=== PATIENT | male | born 1965 | race Caucasian/White ===

== ENCOUNTER 2021-07-09 16:58 | Inpatient (IN) ==
[2021-07-09 18:11] LABS: ABS Basophils 0.1 10^3/ul (0-0.2); ABS Monocytes 1.5 10^3/ul (0-0.8); ABS Neutrophils 19.5 10^3/ul (1.5-7.7); Eosinophil % 0.1 %; Hematocrit 37 % (42-52); Hemoglobin 12.4 g/dL (14.0-18.0); Lymphocyte % 4.3 %; Mean Corpuscular HGB Conc 34 g/dL (31-36); Mean Corpuscular Hemoglobin 27 pg (27-31); Mean Corpuscular Volume 81 fL (80-94); Mean Platelet Volume 8.6 fL (7.4-10.4); Platelet Count 264 10^3/uL (150-450); Red Blood Count 4.56 10^6 /uL (4.18-5.48); Red Cell Distribution Width 14 % (10-15); White Blood Count 22.1 10^3/uL (3.5-10.8)
[2021-07-09 18:29] LABS: ALT 42 U/L (7-52); AST 31 U/L (13-39); Albumin 3.7 g/dL (3.2-5.2); Alkaline Phosphatase 89 U/L (35-149); Anion Gap 8 mmol/L (2-11); Blood Urea Nitrogen 10 mg/dL (6-24); CO2 Carbon Dioxide 23 mmol/L (22-32); Chloride 101 mmol/L (101-111); Globulin 3.6 g/dL (2-4); Glucose 127 mg/dL (70-100); Potassium 3.5 mmol/L (3.5-5.0); Sodium 132 mmol/L (135-145); Total Protein 7.3 g/dL (6.4-8.9)
[2021-07-09 18:41] LABS: Urine Benzodiazepine Screen None Detected (None Detect); Urine Cannabinoids Screen None Detected (None Detect); Urine Opiates Screen None Detected (None Detect)
[2021-07-09] MEDS ORDERED: Vancomycin 1,500 MG in NS 0.9% 250 ml 250 ML IVPB ONE (18:45)
[2021-07-09 18:53] LABS: Alcohol, S < 13 mg/dL (<13)
[2021-07-09 19:46] LABS: C Reactive Protein 225.66 mg/L (<8.01)
[2021-07-09] MEDS ORDERED: Enoxaparin 40 MG/0.4 ML SYR SUBCUT SCH (20:00)
[2021-07-09] MEDS ORDERED: NS 0.9% 250 ml 0 ML ONE (20:04)
[2021-07-09] MEDS ORDERED: NS 0.9% 1000 ml BAG 1,000 ML IV SCH ×2 (20:15→20:33)
[2021-07-09] MEDS ORDERED: Lorazepam PYXIS KEY PRN (20:31)
[2021-07-09 20:42] LABS: Erythrocyte Sed Rate 50 mm/Hr (0-19)
[2021-07-09] MEDS: LORazepam 2 mg VIAL 1 ml IV PUSH ONE ×2 (20:43→22:49)
[2021-07-09 20:57] LABS: Creatine Kinase 116 U/L (10-223)
[2021-07-09] MEDS ORDERED: Vancomycin per Pharmacy 1 EA NOTE FOLLOW UP SCH (22:00)
[2021-07-09 23:07] LABS: Rapid COVID-19 Molecular Undetected (Undetected)
[2021-07-10 00:24] LABS: INR 1.2 (0.86-1.15)
[2021-07-10 00:51] LABS: Urine Appearance Clear; Urine Bilirubin Negative (Negative); Urine Blood Negative (Negative); Urine Color Amber; Urine Glucose Negative (Negative); Urine Ketones Negative (Negative); Urine Nitrite Negative (Negative); Urine Protein 2+(100 mg/dL) (Negative); Urine Specific Gravity 1.029 (1.002-1.030); Urine Urobilinogen Positive (Negative)
[2021-07-10 00:52] LABS: Urine Bacteria 1+ (Absent); Urine Red Blood Cell 1+(3-5/hpf) (Absent); Urine Squamous Epithelial Cell Present (Absent); Urine White Blood Cell Trace(0-5/hpf) (Absent)
[2021-07-10] MEDS ORDERED: NS 0.9% 500 ml BAG 500 ML IV ONE ×2 (03:46→04:22)
[2021-07-10] MEDS ORDERED: Lorazepam PYXIS KEY PRN (03:51)
[2021-07-10 04:11] LABS: Hematocrit 36 % (42-52); Hemoglobin 11.7 g/dL (14.0-18.0); Mean Corpuscular HGB Conc 33 g/dL (31-36); Mean Corpuscular Hemoglobin 26 pg (27-31); Mean Corpuscular Volume 80 fL (80-94); Mean Platelet Volume 8.7 fL (7.4-10.4); Platelet Count 263 10^3/uL (150-450); Red Blood Count 4.45 10^6 /uL (4.18-5.48); Red Cell Distribution Width 14 % (10-15); White Blood Count 16.9 10^3/uL (3.5-10.8)
[2021-07-10 04:16] LABS: ABS Basophils 0.1 10^3/ul (0-0.2); ABS Monocytes 1.6 10^3/ul (0-0.8); ABS Neutrophils 14.2 10^3/ul (1.5-7.7); Eosinophil % 0.1 %
[2021-07-10 04:42] LABS: Anion Gap 8 mmol/L (2-11); Blood Urea Nitrogen 11 mg/dL (6-24); CO2 Carbon Dioxide 24 mmol/L (22-32); Calcium 8.4 mg/dL (8.6-10.3); Chloride 99 mmol/L (101-111); Glucose 110 mg/dL (70-100); Potassium 3.3 mmol/L (3.5-5.0); Sodium 131 mmol/L (135-145)
[2021-07-10] MEDS: Vancomycin 1,250 MG in NS 0.9% 250 ml 250 ML IVPB SCH ×3 (05:11→22:59)
[2021-07-10 05:35] LABS: Troponin I 0.04 ng/mL (<0.03)
[2021-07-10] MEDS ORDERED: KCL 20 MEQ/100 ML IVPREMIX 20 MEQ/100 ML BAG IV ONE (05:59)
[2021-07-10 06:23] LABS: Magnesium 1.6 mg/dL (1.9-2.7)
[2021-07-10 06:34] LABS: Troponin I 0.14 ng/mL (<0.03)
[2021-07-10] MEDS ORDERED: Magnesium Sulfate 2 gm BAG 2 GM/50 ML BAG IVPB ONE (07:14)
[2021-07-10] MEDS: Enoxaparin 40 MG/0.4 ML SYR SUBCUT SCH (08:49)
[2021-07-10 08:59] LABS: Troponin I 0.05 ng/mL (<0.03)
[2021-07-10] MEDS: LORazepam 2 mg VIAL 1 ml IV PUSH PRN ×2 (11:55→20:59)
[2021-07-11] MEDS: LORazepam 2 mg VIAL 1 ml IV PUSH PRN ×3 (04:23→20:42)
[2021-07-11 05:28] LABS: ABS Basophils 0.1 10^3/ul (0-0.2); ABS Eosinophils 0.1 10^3/ul (0-0.6); ABS Lymphocytes 1.4 10^3/ul (1.0-4.8); ABS Monocytes 1.2 10^3/ul (0-0.8); ABS Neutrophils 11.5 10^3/ul (1.5-7.7); Eosinophil % 0.7 %; Hematocrit 40 % (42-52); Hemoglobin 13.2 g/dL (14.0-18.0); Lymphocyte % 9.7 %; Mean Corpuscular HGB Conc 33 g/dL (31-36); Mean Corpuscular Hemoglobin 27 pg (27-31); Mean Corpuscular Volume 81 fL (80-94); Mean Platelet Volume 8.6 fL (7.4-10.4); Platelet Count 316 10^3/uL (150-450); Red Blood Count 4.97 10^6 /uL (4.18-5.48); Red Cell Distribution Width 14 % (10-15); White Blood Count 14.1 10^3/uL (3.5-10.8)
[2021-07-11 05:52] LABS: Calcium 8.7 mg/dL (8.6-10.3); Magnesium 2.1 mg/dL (1.9-2.7); Potassium 3.1 mmol/L (3.5-5.0)
[2021-07-11] MEDS: Vancomycin 1,250 MG in NS 0.9% 250 ml 250 ML IVPB SCH ×2 (05:55→13:30)
[2021-07-11] MEDS ORDERED: HYDROmorphone 1 MG/1 ML SYRINGE IV SLOW PU ONE ×2 (06:07→22:55)
[2021-07-11] MEDS ORDERED: Potassium Chlor 20 meq TAB.ER PO ONE (06:11)
[2021-07-11] MEDS: Enoxaparin 40 MG/0.4 ML SYR SUBCUT SCH (11:03)
[2021-07-11] MEDS ORDERED: Vancomycin Trough Check NOTE FOLLOW UP ONE (12:30)
[2021-07-11 13:05] LABS: Calcium 8.6 mg/dL (8.6-10.3); Potassium 3.6 mmol/L (3.5-5.0)
[2021-07-11 13:20] LABS: Vancomycin Trough 4.1 mcg/mL
[2021-07-11 14:07] LABS: Hepatitis C Antibody Reactive (Negative)
[2021-07-11] MEDS: Vancomycin 1,500 MG in NS 0.9% 250 ml 250 ML IVPB SCH (22:01)
[2021-07-11] MEDS ORDERED: hydrALAZINE 20 mg/ml 1 ML Vial IV IV SLOW PU ONE (22:19)
[2021-07-12] MEDS ORDERED: Lorazepam PYXIS KEY PRN (00:43)
[2021-07-12] MEDS ORDERED: LORazepam 2 mg VIAL 1 ml IV PUSH ONE (00:44)
[2021-07-12 05:06] LABS: Hematocrit 36 % (42-52); Hemoglobin 11.9 g/dL (14.0-18.0); Mean Corpuscular HGB Conc 33 g/dL (31-36); Mean Corpuscular Hemoglobin 27 pg (27-31); Mean Corpuscular Volume 80 fL (80-94); Mean Platelet Volume 8.7 fL (7.4-10.4); Platelet Count 324 10^3/uL (150-450); Red Blood Count 4.47 10^6 /uL (4.18-5.48); Red Cell Distribution Width 14 % (10-15); White Blood Count 17.2 10^3/uL (3.5-10.8)
[2021-07-12 05:15] LABS: INR 1.15 (0.86-1.15)
[2021-07-12 05:26] LABS: Calcium 8.7 mg/dL (8.6-10.3); Potassium 3.5 mmol/L (3.5-5.0)
[2021-07-12] MEDS: LORazepam 2 mg VIAL 1 ml IV PUSH PRN ×3 (05:28→22:51)
[2021-07-12] MEDS: Vancomycin 1,500 MG in NS 0.9% 250 ml 250 ML IVPB SCH ×3 (05:29→23:12)
[2021-07-12 07:54] LABS: ABS Basophils 0.1 10^3/ul (0-0.2); ABS Eosinophils 0.1 10^3/ul (0-0.6); ABS Lymphocytes 1.8 10^3/ul (1.0-4.8); ABS Monocytes 1.6 10^3/ul (0-0.8); ABS Neutrophils 13.6 10^3/ul (1.5-7.7); Eosinophil % 0.6 %; Lymphocyte % 10.6 %
[2021-07-12] MEDS: HYDROmorphone 1 MG/1 ML SYRINGE IV SLOW PU PRN ×2 (09:02→14:37)
[2021-07-12] MEDS ORDERED: Iohexol 300 (CONTRAST) 10 ML SDV IV ONE (09:33)
[2021-07-12 10:33] LABS: HIV 4th Generation Nonreactive (Nonreactive)
[2021-07-12 12:01] LABS: TSH Ultra Thyroid Stim Horm 6.18 mcIU/mL (0.34-5.60)
[2021-07-12] MEDS: Enoxaparin 40 MG/0.4 ML SYR SUBCUT SCH (12:03)
[2021-07-12] MEDS ORDERED: fentaNYL 100 mcg/2 ml 50 MCG/ML VIAL IV SLOW PU ONE ×2 (12:32)
[2021-07-12] MEDS ORDERED: NS 0.9% 1000 ml BAG 1,000 ML IV SCH (12:45)
[2021-07-12 12:58] LABS: Urine Benzodiazepine Screen None Detected (None Detect); Urine Buprenorphine Screen None Detected (None Detect); Urine Cannabinoids Screen None Detected (None Detect); Urine Fentanyl Screen Presumptive Positive (None Detect); Urine Hydrocodone Screen Presumptive Positive (None Detect); Urine Opiates Screen Presumptive Positive (None Detect)
[2021-07-12] MEDS ORDERED: Propofol 10 MG/ML 20 ML BTL ONE (15:53)
[2021-07-12] MEDS ORDERED: EPHEDrine (Pressors) 50 MG/ML VIAL ONE (15:53)
[2021-07-12] MEDS ORDERED: Midazolam 5 mg/5 ml VIAL 1 mg/ml 5 ml VIAL (5 mg) ONE (15:54)
[2021-07-12] MEDS ORDERED: Rocuronium 50 mg VIAL 10 mg/ml 5 ml VIAL (50 mg) ONE ×3 (15:57→18:34)
[2021-07-12] MEDS ORDERED: Morphine ER 15 mg TAB ** extended release PO SCH (16:00)
[2021-07-12] MEDS ORDERED: Acetaminophen IV 1 GM/100ML 100 ML IV ONE (16:26)
[2021-07-12] MEDS ORDERED: HYDROmorphone 1 MG/1 ML SYRINGE IV SLOW PU ONE ×2 (16:30→22:03)
[2021-07-12] MEDS ORDERED: ceFAZolin VIAL VIAL ONE ×2 (16:50→20:24)
[2021-07-12] MEDS ORDERED: ceFAZolin 2 GM in NS PREMIX 2 GM/100 ML BAG IVPB ONE (17:09)
[2021-07-12] MEDS ORDERED: Ondansetron 4 mg VIAL 2 MG/ML 2 ml VIAL IV PRN (20:39)
[2021-07-12] MEDS ORDERED: HYDROmorphone 1 MG/1 ML SYRINGE IV PRN (20:39)
[2021-07-12] MEDS ORDERED: Metoclopramide 5 MG/ML VIAL (10 mg) IV PRN (20:39)
[2021-07-12] MEDS ORDERED: Naloxone 0.4 mg VIAL 0.4 mg/ml 1 ml VIAL IV PRN (20:39)
[2021-07-12] MEDS ORDERED: Sugammadex 500 MG/5 ML 5 ml VIAL IV PUSH ONE (20:45)
[2021-07-12] MEDS ORDERED: fentaNYL 100 mcg/2 ml 50 MCG/ML VIAL ONE (21:54)
[2021-07-12] MEDS ORDERED: HYDROmorphone 1 MG/1 ML SYRINGE ONE (21:54)
[2021-07-12] MEDS: fentaNYL 100 mcg/2 ml 50 MCG/ML VIAL IV PRN ×2 (22:00→22:20)
[2021-07-12] MEDS ORDERED: Dexmedetomidine 1,000 MCG in NS 0.9% 250 ml 240 ML IV SCH (23:45)
[2021-07-12] MEDS: fentaNYL 100 mcg/2 ml 50 MCG/ML VIAL IV SLOW PU PRN (23:49)
[2021-07-13] MEDS: Vancomycin 1,500 MG in NS 0.9% 250 ml 250 ML IVPB SCH (04:42)
[2021-07-13 04:45] LABS: Hematocrit 37 % (42-52); Hemoglobin 12.1 g/dL (14.0-18.0); Mean Corpuscular HGB Conc 33 g/dL (31-36); Mean Corpuscular Hemoglobin 26 pg (27-31); Mean Corpuscular Volume 81 fL (80-94); Mean Platelet Volume 8.6 fL (7.4-10.4); Platelet Count 387 10^3/uL (150-450); Red Blood Count 4.62 10^6 /uL (4.18-5.48); Red Cell Distribution Width 15 % (10-15); White Blood Count 15.6 10^3/uL (3.5-10.8)
[2021-07-13] MEDS: fentaNYL 100 mcg/2 ml 50 MCG/ML VIAL IV SLOW PU PRN ×3 (04:47→20:33)
[2021-07-13 04:53] LABS: ABS Basophils 0.1 10^3/ul (0-0.2); ABS Lymphocytes 2.1 10^3/ul (1.0-4.8); ABS Monocytes 1.8 10^3/ul (0-0.8); ABS Neutrophils 11.5 10^3/ul (1.5-7.7); Eosinophil % 0.1 %; Lymphocyte % 13.4 %
[2021-07-13 04:56] LABS: INR 1.24 (0.86-1.15)
[2021-07-13 05:00] LABS: Calcium 8.7 mg/dL (8.6-10.3)
[2021-07-13] MEDS ORDERED: Vancomycin 1000 MG in NS 0.9% 250 ML IVPB ONE (06:15)
[2021-07-13] MEDS: Cyanocobalamin INJ 1,000 MCG/ML VIAL 1 ML VIAL IM SCH (09:08)
[2021-07-13] MEDS: HYDROmorphone 1 MG/1 ML SYRINGE IV SLOW PU PRN ×6 (10:10→23:59)
[2021-07-13 12:41] LABS: Urine Creatinine Concentration 80.59 mg/dL
[2021-07-13] MEDS ORDERED: Vancomycin Trough Check NOTE FOLLOW UP ONE (13:30)
[2021-07-13] MEDS ORDERED: Vancomycin 1,500 MG in NS 0.9% 250 ml 250 ML IVPB SCH (14:00)
[2021-07-13] MEDS: LORazepam 2 mg VIAL 1 ml IV PUSH PRN (19:55)
[2021-07-13] MEDS ORDERED: Cefepime 1 GM in Dextrose 1 GM/50 ML BAG IV SCH (20:00)
[2021-07-13] MEDS ORDERED: NS 0.9% 1000 ml BAG 1,000 ML IV ONE (21:02)
[2021-07-13 21:14] LABS: Urine Appearance Clear; Urine Bilirubin Negative (Negative); Urine Blood Negative (Negative); Urine Color Yellow; Urine Glucose Negative (Negative); Urine Ketones Negative (Negative); Urine Nitrite Negative (Negative); Urine Protein Negative (Negative); Urine Urobilinogen Positive (Negative)
[2021-07-13] MEDS ORDERED: NS 0.9% 1000 ml BAG 1,000 ML IV SCH (21:15)
[2021-07-13] MEDS: Vancomycin 1000 MG in NS 0.9% 250 ML IVPB SCH (21:45)
[2021-07-13] MEDS: Cefepime 1 GM in Dextrose 1 GM/50 ML BAG IV SCH (23:24)
[2021-07-14] MEDS: LORazepam 2 mg VIAL 1 ml IV PUSH PRN ×3 (02:08→14:36)
[2021-07-14] MEDS: HYDROmorphone 1 MG/1 ML SYRINGE IV SLOW PU PRN ×7 (02:08→22:03)
[2021-07-14] MEDS: Vancomycin 1000 MG in NS 0.9% 250 ML IVPB SCH ×4 (02:52→21:27)
[2021-07-14] MEDS: fentaNYL 100 mcg/2 ml 50 MCG/ML VIAL IV SLOW PU PRN ×2 (06:10→20:09)
[2021-07-14 06:55] LABS: Hematocrit 35 % (42-52); Hemoglobin 11.4 g/dL (14.0-18.0); Mean Corpuscular HGB Conc 33 g/dL (31-36); Mean Corpuscular Hemoglobin 27 pg (27-31); Mean Corpuscular Volume 81 fL (80-94); Mean Platelet Volume 8.4 fL (7.4-10.4); Platelet Count 381 10^3/uL (150-450); Red Blood Count 4.28 10^6 /uL (4.18-5.48); Red Cell Distribution Width 15 % (10-15); White Blood Count 15.5 10^3/uL (3.5-10.8)
[2021-07-14 07:20] LABS: Albumin 3.1 g/dL (3.2-5.2); Albumin/Globulin Ratio 0.9 (1-3); Calcium 8.1 mg/dL (8.6-10.3); Globulin 3.6 g/dL (2-4); Magnesium 1.9 mg/dL (1.9-2.7); Potassium 3.6 mmol/L (3.5-5.0); Total Bilirubin 0.5 mg/dL (0.2-1.0); Total Protein 6.7 g/dL (6.4-8.9)
[2021-07-14] MEDS: Cyanocobalamin INJ 1,000 MCG/ML VIAL 1 ML VIAL IM SCH (07:29)
[2021-07-14] MEDS: Cefepime 1 GM in Dextrose 1 GM/50 ML BAG IV SCH (10:38)
[2021-07-14] MEDS ORDERED: Lactated Ringers 500 ml BAG 500 ML IV ONE (15:26)
[2021-07-14 18:00] LABS: CRP High Sensitivity 134.04 mg/L (<2.00)
[2021-07-14] MEDS ORDERED: Thiamine 100 MG/ML 2 ml VIAL (200 mg) IM ONE (18:48)
[2021-07-14] MEDS: LORazepam 2 mg VIAL 1 ml IV PUSH SCH (22:02)
[2021-07-15] MEDS: HYDROmorphone 1 MG/1 ML SYRINGE IV SLOW PU PRN ×2 (01:10→08:57)
[2021-07-15] MEDS: Vancomycin 1000 MG in NS 0.9% 250 ML IVPB SCH ×4 (03:49→20:33)
[2021-07-15] MEDS: fentaNYL 100 mcg/2 ml 50 MCG/ML VIAL IV SLOW PU PRN ×3 (03:49→22:26)
[2021-07-15] MEDS: LORazepam 2 mg VIAL 1 ml IV PUSH SCH ×2 (04:23→12:01)
[2021-07-15 06:05] LABS: Calcium 8.2 mg/dL (8.6-10.3); Magnesium 1.9 mg/dL (1.9-2.7); Potassium 3.4 mmol/L (3.5-5.0)
[2021-07-15 06:07] LABS: ABS Basophils 0.2 10^3/ul (0-0.2); ABS Eosinophils 0.3 10^3/ul (0-0.6); ABS Lymphocytes 2.4 10^3/ul (1.0-4.8); ABS Monocytes 1.5 10^3/ul (0-0.8); ABS Neutrophils 8.1 10^3/ul (1.5-7.7); Eosinophil % 2.1 %; Hematocrit 32 % (42-52); Hemoglobin 10.7 g/dL (14.0-18.0); Lymphocyte % 19.4 %; Mean Corpuscular HGB Conc 34 g/dL (31-36); Mean Corpuscular Hemoglobin 27 pg (27-31); Mean Corpuscular Volume 80 fL (80-94); Mean Platelet Volume 8.6 fL (7.4-10.4); Platelet Count 361 10^3/uL (150-450); Red Blood Count 3.96 10^6 /uL (4.18-5.48); Red Cell Distribution Width 15 % (10-15); White Blood Count 12.4 10^3/uL (3.5-10.8)
[2021-07-15] MEDS ORDERED: Magnesium Hydroxide LIQ 30 ML UDC PO PRN (07:05)
[2021-07-15] MEDS ORDERED: Senna TAB 8.6 mg TAB PO PRN (07:05)
[2021-07-15] MEDS ORDERED: Vancomycin Trough Check NOTE FOLLOW UP ONE (08:30)
[2021-07-15] MEDS: Cyanocobalamin INJ 1,000 MCG/ML VIAL 1 ML VIAL IM SCH (08:57)
[2021-07-15] MEDS: Multivitamins/Minerals TAB PO SCH (08:58)
[2021-07-15 09:31] LABS: Vancomycin Trough 10.2 mcg/mL
[2021-07-15] MEDS: Morphine ORAL.SOLN 10 mg 2 mg/ml UDC 5 ml (10 mg) PO PRN ×2 (12:01→15:48)
[2021-07-16] MEDS: LORazepam 2 mg VIAL 1 ml IV PUSH SCH ×2 (00:01→04:31)
[2021-07-16] MEDS: Vancomycin 1000 MG in NS 0.9% 250 ML IVPB SCH ×3 (02:41→20:15)
[2021-07-16] MEDS: Morphine ORAL.SOLN 10 mg 2 mg/ml UDC 5 ml (10 mg) PO PRN ×4 (04:31→20:15)
[2021-07-16 07:14] LABS: Hematocrit 37 % (42-52); Mean Corpuscular HGB Conc 33 g/dL (31-36); Mean Corpuscular Hemoglobin 27 pg (27-31); Mean Corpuscular Volume 83 fL (80-94); Mean Platelet Volume 9.2 fL (7.4-10.4); Platelet Count 373 10^3/uL (150-450); Red Blood Count 4.44 10^6 /uL (4.18-5.48); Red Cell Distribution Width 15 % (10-15); White Blood Count 12.7 10^3/uL (3.5-10.8)
[2021-07-16 07:23] LABS: ABS Basophils 0.1 10^3/ul (0-0.2); ABS Eosinophils 0.3 10^3/ul (0-0.6); ABS Lymphocytes 2.7 10^3/ul (1.0-4.8); ABS Monocytes 1.3 10^3/ul (0-0.8); ABS Neutrophils 8.2 10^3/ul (1.5-7.7); Albumin 2.9 g/dL (3.2-5.2); Calcium 8.5 mg/dL (8.6-10.3); Eosinophil % 2.5 %; Lymphocyte % 21.6 %; Potassium 4.1 mmol/L (3.5-5.0); Total Bilirubin 0.3 mg/dL (0.2-1.0)
[2021-07-16 07:29] LABS: Albumin/Globulin Ratio 0.8 (1-3); Globulin 3.8 g/dL (2-4); Total Protein 6.7 g/dL (6.4-8.9)
[2021-07-16] MEDS: Multivitamins/Minerals TAB PO SCH (08:58)
[2021-07-16] MEDS: Cyanocobalamin INJ 1,000 MCG/ML VIAL 1 ML VIAL IM SCH (08:58)
[2021-07-16 10:54] LABS: ABS Basophils 0.2 10^3/ul (0-0.2); ABS Eosinophils 0.3 10^3/ul (0-0.6); ABS Lymphocytes 2.6 10^3/ul (1.0-4.8); ABS Monocytes 1.3 10^3/ul (0-0.8); ABS Neutrophils 7.7 10^3/ul (1.5-7.7); Eosinophil % 2.8 %; Hematocrit 36 % (42-52); Hemoglobin 11.9 g/dL (14.0-18.0); Lymphocyte % 21.5 %; Mean Corpuscular HGB Conc 33 g/dL (31-36); Mean Corpuscular Hemoglobin 26 pg (27-31); Mean Corpuscular Volume 80 fL (80-94); Mean Platelet Volume 8.6 fL (7.4-10.4); Platelet Count 527 10^3/uL (150-450); Red Blood Count 4.54 10^6 /uL (4.18-5.48); Red Cell Distribution Width 15 % (10-15); White Blood Count 12.1 10^3/uL (3.5-10.8)
[2021-07-16 11:02] LABS: Activated Partial Thrombo Time 28.2 seconds (26.0-38.0); INR 1.15 (0.86-1.15)
[2021-07-16] MEDS: Heparin 5000 UNITS/ML 1 mL VIAL SUBCUT SCH ×2 (14:47→20:15)
[2021-07-16] MEDS: fentaNYL 100 mcg/2 ml 50 MCG/ML VIAL IV SLOW PU PRN (21:48)
[2021-07-17] MEDS: Morphine ORAL.SOLN 10 mg 2 mg/ml UDC 5 ml (10 mg) PO PRN ×4 (01:16→20:58)
[2021-07-17] MEDS: Vancomycin 1000 MG in NS 0.9% 250 ML IVPB SCH ×4 (01:17→20:52)
[2021-07-17] MEDS: fentaNYL 100 mcg/2 ml 50 MCG/ML VIAL IV SLOW PU PRN ×3 (02:21→18:28)
[2021-07-17] MEDS: Heparin 5000 UNITS/ML 1 mL VIAL SUBCUT SCH ×3 (04:09→20:56)
[2021-07-17 06:58] LABS: ABS Basophils 0.1 10^3/ul (0-0.2); ABS Eosinophils 0.4 10^3/ul (0-0.6); ABS Lymphocytes 2.7 10^3/ul (1.0-4.8); ABS Monocytes 1.2 10^3/ul (0-0.8); ABS Neutrophils 9.4 10^3/ul (1.5-7.7); Eosinophil % 2.7 %; Hematocrit 38 % (42-52); Hemoglobin 12.5 g/dL (14.0-18.0); Lymphocyte % 19.7 %; Mean Corpuscular HGB Conc 33 g/dL (31-36); Mean Corpuscular Hemoglobin 27 pg (27-31); Mean Corpuscular Volume 80 fL (80-94); Mean Platelet Volume 8.5 fL (7.4-10.4); Nucleated Red Blood Cells % 0.1; Platelet Count 638 10^3/uL (150-450); Red Blood Count 4.73 10^6 /uL (4.18-5.48); Red Cell Distribution Width 15 % (10-15); White Blood Count 13.8 10^3/uL (3.5-10.8)
[2021-07-17 07:15] LABS: Calcium 9.2 mg/dL (8.6-10.3)
[2021-07-17] MEDS: Cyanocobalamin INJ 1,000 MCG/ML VIAL 1 ML VIAL IM SCH (08:20)
[2021-07-17] MEDS: Multivitamins/Minerals TAB PO SCH (08:21)
[2021-07-17 11:59] LABS: C Reactive Protein 41.72 mg/L (<8.01)
[2021-07-18] MEDS: Vancomycin 1000 MG in NS 0.9% 250 ML IVPB SCH ×3 (01:45→14:01)
[2021-07-18] MEDS: Heparin 5000 UNITS/ML 1 mL VIAL SUBCUT SCH ×2 (05:31→14:02)
[2021-07-18 07:30] LABS: Hematocrit 38 % (42-52); Hemoglobin 12.6 g/dL (14.0-18.0); Mean Corpuscular HGB Conc 33 g/dL (31-36); Mean Corpuscular Hemoglobin 26 pg (27-31); Mean Corpuscular Volume 79 fL (80-94); Mean Platelet Volume 8.1 fL (7.4-10.4); Platelet Count 787 10^3/uL (150-450); Red Blood Count 4.78 10^6 /uL (4.18-5.48); Red Cell Distribution Width 15 % (10-15); White Blood Count 17.2 10^3/uL (3.5-10.8)
[2021-07-18 07:47] LABS: Calcium 9.1 mg/dL (8.6-10.3); Potassium 4.5 mmol/L (3.5-5.0)
[2021-07-18 07:57] LABS: C Reactive Protein 23.48 mg/L (<8.01)
[2021-07-18] MEDS: Morphine ORAL.SOLN 10 mg 2 mg/ml UDC 5 ml (10 mg) PO PRN ×3 (07:59→19:41)
[2021-07-18] MEDS: Multivitamins/Minerals TAB PO SCH (08:01)
[2021-07-18 09:05] LABS: ABS Basophils 0.2 10^3/ul (0-0.2); ABS Eosinophils 0.4 10^3/ul (0-0.6); ABS Lymphocytes 3.8 10^3/ul (1.0-4.8); ABS Monocytes 1.5 10^3/ul (0-0.8); ABS Neutrophils 11.1 10^3/ul (1.5-7.7); Eosinophil % 2.4 %; Lymphocyte % 22.1 %
[2021-07-18] MEDS: Enoxaparin 40 MG/0.4 ML SYR SUBCUT SCH (21:40)
[2021-07-19] MEDS: Vancomycin 1000 MG in NS 0.9% 250 ML IVPB SCH ×5 (02:18→20:31)
[2021-07-19 06:20] LABS: Anion Gap 7 mmol/L (2-11); CO2 Carbon Dioxide 25 mmol/L (22-32); Calcium 9.3 mg/dL (8.6-10.3); Chloride 100 mmol/L (101-111); Hematocrit 39 % (42-52); Hemoglobin 12.8 g/dL (14.0-18.0); Mean Corpuscular HGB Conc 33 g/dL (31-36); Mean Corpuscular Hemoglobin 27 pg (27-31); Mean Corpuscular Volume 80 fL (80-94); Mean Platelet Volume 8.2 fL (7.4-10.4); Platelet Count 790 10^3/uL (150-450); Potassium 4.3 mmol/L (3.5-5.0); Red Blood Count 4.83 10^6 /uL (4.18-5.48); Red Cell Distribution Width 15 % (10-15); Sodium 132 mmol/L (135-145); White Blood Count 16.7 10^3/uL (3.5-10.8)
[2021-07-19 06:26] LABS: Blood Urea Nitrogen 14 mg/dL (6-24); Glucose 127 mg/dL (70-100)
[2021-07-19] MEDS: Multivitamins/Minerals TAB PO SCH (08:20)
[2021-07-19 08:29] LABS: ABS Basophils 0.2 10^3/ul (0-0.2); ABS Eosinophils 0.4 10^3/ul (0-0.6); ABS Lymphocytes 3.4 10^3/ul (1.0-4.8); ABS Monocytes 1.3 10^3/ul (0-0.8); ABS Neutrophils 11.4 10^3/ul (1.5-7.7); Eosinophil % 2.5 %; Lymphocyte % 20.5 %; Nucleated Red Blood Cells % 0.1
[2021-07-19] MEDS: Morphine ORAL.SOLN 10 mg 2 mg/ml UDC 5 ml (10 mg) PO PRN ×3 (08:29→22:42)
[2021-07-19] MEDS ORDERED: Vancomycin Trough Check NOTE FOLLOW UP ONE (13:30)
[2021-07-19 18:26] LABS: % Iron Saturation 16 % (15-55); Iron 56 ug/dL (50-212); Total Iron Binding Capacity 354 mcg/dL (250-450); Transferrin 253 mg/dL (203-362); Unsaturated Iron Binding < 339 ug/dL
[2021-07-19 18:46] LABS: Ferritin 262.7 ng/mL (24-336)
[2021-07-19] MEDS: Enoxaparin 40 MG/0.4 ML SYR SUBCUT SCH (20:32)
[2021-07-20] MEDS: Vancomycin 1000 MG in NS 0.9% 250 ML IVPB SCH ×4 (02:43→20:25)
[2021-07-20] MEDS: fentaNYL 100 mcg/2 ml 50 MCG/ML VIAL IV SLOW PU PRN (03:11)
[2021-07-20 06:38] LABS: ABS Basophils 0.1 10^3/ul (0-0.2); ABS Eosinophils 0.4 10^3/ul (0-0.6); ABS Lymphocytes 3.2 10^3/ul (1.0-4.8); ABS Monocytes 1.5 10^3/ul (0-0.8); ABS Neutrophils 10.5 10^3/ul (1.5-7.7); Eosinophil % 2.7 %; Hematocrit 37 % (42-52); Hemoglobin 12.3 g/dL (14.0-18.0); Lymphocyte % 20.5 %; Mean Corpuscular HGB Conc 33 g/dL (31-36); Mean Corpuscular Hemoglobin 27 pg (27-31); Mean Corpuscular Volume 80 fL (80-94); Mean Platelet Volume 8.1 fL (7.4-10.4); Platelet Count 816 10^3/uL (150-450); Red Blood Count 4.62 10^6 /uL (4.18-5.48); Red Cell Distribution Width 15 % (10-15); White Blood Count 15.7 10^3/uL (3.5-10.8)
[2021-07-20] MEDS: Morphine ORAL.SOLN 10 mg 2 mg/ml UDC 5 ml (10 mg) PO PRN (08:16)
[2021-07-20] MEDS: Multivitamins/Minerals TAB PO SCH (08:18)
[2021-07-20] MEDS: Enoxaparin 40 MG/0.4 ML SYR SUBCUT SCH (20:26)
[2021-07-21] MEDS: Morphine ORAL.SOLN 10 mg 2 mg/ml UDC 5 ml (10 mg) PO PRN ×3 (00:48→16:47)
[2021-07-21] MEDS: Vancomycin 1000 MG in NS 0.9% 250 ML IVPB SCH ×4 (01:57→20:31)
[2021-07-21] MEDS: fentaNYL 100 mcg/2 ml 50 MCG/ML VIAL IV SLOW PU PRN (05:18)
[2021-07-21] MEDS ORDERED: Vancomycin Trough Check NOTE FOLLOW UP ONE (07:30)
[2021-07-21 09:08] LABS: Hematocrit 38 % (42-52); Hemoglobin 12.6 g/dL (14.0-18.0); Mean Corpuscular HGB Conc 33 g/dL (31-36); Mean Corpuscular Hemoglobin 27 pg (27-31); Mean Corpuscular Volume 82 fL (80-94); Mean Platelet Volume 7.9 fL (7.4-10.4); Platelet Count 969 10^3/uL (150-450); Red Blood Count 4.68 10^6 /uL (4.18-5.48); Red Cell Distribution Width 15 % (10-15); White Blood Count 14.5 10^3/uL (3.5-10.8)
[2021-07-21 10:07] LABS: Vancomycin Trough 10.7 mcg/mL
[2021-07-21] MEDS: Multivitamins/Minerals TAB PO SCH (10:48)
[2021-07-21] MEDS ORDERED: fentaNYL 100 mcg/2 ml 50 MCG/ML VIAL IV SLOW PU PRN (16:49)
[2021-07-21 19:06] LABS: ABS Basophils 0.1 10^3/ul (0-0.2); ABS Eosinophils 0.2 10^3/ul (0-0.6); ABS Lymphocytes 2.4 10^3/ul (1.0-4.8); ABS Monocytes 1.4 10^3/ul (0-0.8); ABS Neutrophils 10.3 10^3/ul (1.5-7.7); Eosinophil % 1.7 %; Lymphocyte % 16.7 %
[2021-07-21] MEDS: Enoxaparin 40 MG/0.4 ML SYR SUBCUT SCH (23:17)
[2021-07-22] MEDS: Vancomycin 1000 MG in NS 0.9% 250 ML IVPB SCH ×4 (01:22→19:42)
[2021-07-22 05:30] LABS: ABS Basophils 0.1 10^3/ul (0-0.2); ABS Eosinophils 0.1 10^3/ul (0-0.6); ABS Lymphocytes 2.2 10^3/ul (1.0-4.8); ABS Monocytes 1.4 10^3/ul (0-0.8); ABS Neutrophils 6.7 10^3/ul (1.5-7.7); Hematocrit 36 % (42-52); Hemoglobin 12.1 g/dL (14.0-18.0); Lymphocyte % 21.1 %; Mean Corpuscular HGB Conc 33 g/dL (31-36); Mean Corpuscular Hemoglobin 27 pg (27-31); Mean Corpuscular Volume 80 fL (80-94); Mean Platelet Volume 7.7 fL (7.4-10.4); Platelet Count 792 10^3/uL (150-450); Red Blood Count 4.55 10^6 /uL (4.18-5.48); Red Cell Distribution Width 14 % (10-15); White Blood Count 10.6 10^3/uL (3.5-10.8)
[2021-07-22 05:46] LABS: Potassium 4.1 mmol/L (3.5-5.0)
[2021-07-22] MEDS: Morphine ORAL.SOLN 10 mg 2 mg/ml UDC 5 ml (10 mg) PO PRN ×3 (09:50→19:51)
[2021-07-22] MEDS: Multivitamins/Minerals TAB PO SCH (09:50)
[2021-07-22] MEDS: Enoxaparin 40 MG/0.4 ML SYR SUBCUT SCH (19:52)
[2021-07-23] MEDS: Vancomycin 1000 MG in NS 0.9% 250 ML IVPB SCH ×4 (01:01→21:34)
[2021-07-23 05:17] LABS: Calcium 8.8 mg/dL (8.6-10.3); Magnesium 1.8 mg/dL (1.9-2.7); Potassium 4.1 mmol/L (3.5-5.0)
[2021-07-23] MEDS ORDERED: Magnesium Sulfate 2 gm BAG 2 GM/50 ML BAG IVPB ONE (07:47)
[2021-07-23] MEDS: Morphine ORAL.SOLN 10 mg 2 mg/ml UDC 5 ml (10 mg) PO PRN ×3 (08:37→21:34)
[2021-07-23] MEDS: Multivitamins/Minerals TAB PO SCH (08:38)
[2021-07-23] MEDS: Enoxaparin 40 MG/0.4 ML SYR SUBCUT SCH (21:33)
[2021-07-24] MEDS: Vancomycin 1000 MG in NS 0.9% 250 ML IVPB SCH ×3 (03:12→12:51)
[2021-07-24 07:36] LABS: Hematocrit 34 % (42-52); Hemoglobin 11.2 g/dL (14.0-18.0); Mean Corpuscular HGB Conc 33 g/dL (31-36); Mean Corpuscular Hemoglobin 27 pg (27-31); Mean Corpuscular Volume 81 fL (80-94); Mean Platelet Volume 7.4 fL (7.4-10.4); Platelet Count 694 10^3/uL (150-450); Red Blood Count 4.15 10^6 /uL (4.18-5.48); Red Cell Distribution Width 15 % (10-15); White Blood Count 8.2 10^3/uL (3.5-10.8)
[2021-07-24 07:53] LABS: Potassium 4.4 mmol/L (3.5-5.0)
[2021-07-24] MEDS: Multivitamins/Minerals TAB PO SCH (08:04)
[2021-07-24 08:14] LABS: Vancomycin Trough 27.2 mcg/mL
[2021-07-24 08:29] LABS: C Reactive Protein 12.63 mg/L (<8.01)
[2021-07-24] MEDS: Morphine ORAL.SOLN 10 mg 2 mg/ml UDC 5 ml (10 mg) PO PRN (08:49)
[2021-07-24 13:29] VITALS: BP 125/63
[2021-07-24] MEDS ORDERED: Vancomycin 1000 MG in NS 0.9% 250 ML IVPB SCH (20:00)
[2021-07-28] MEDS ORDERED: Vancomycin Trough Check NOTE FOLLOW UP ONE (11:30)
== END 2021-07-24 16:44 | disposition swing bed (61) | DRG 710 ==
LOC: ED 16:58 → SUATTDRO 19:55 → EDHOLD 19:55 → MEDTELE 07-10 02:08 → ICU 07-12 22:49 → SSU 07-13 18:20
PROVIDERS: ADMIT Internal Medicine; ATTEND Internal Medicine

== ENCOUNTER 2021-07-24 14:01 | Inpatient (IN) ==
[2021-07-24] MEDS ORDERED: Magnesium Hydroxide LIQ 30 ML UDC PO PRN (15:10)
[2021-07-24] MEDS ORDERED: Senna TAB 8.6 mg TAB PO PRN (15:19)
[2021-07-24] MEDS ORDERED: Vancomycin per Pharmacy 1 EA NOTE FOLLOW UP SCH (16:00)
[2021-07-24] MEDS ORDERED: Vancomycin 1,000 MG in NS 0.9% 250 ml 250 ML IVPB SCH (20:00)
[2021-07-24] MEDS: Enoxaparin 40 MG/0.4 ML SYR SUBCUT SCH (20:14)
[2021-07-24] MEDS: Morphine ORAL.SOLN 10 mg 2 mg/ml UDC 5 ml (10 mg) PO PRN (20:41)
[2021-07-25] MEDS: Vancomycin 1,000 MG in NS 0.9% 250 ml 250 ML IVPB SCH ×3 (00:20→17:42)
[2021-07-25] MEDS ORDERED: Buffered Lidocaine 1% SYRIN 1 ml INTRADERM ONE (10:11)
[2021-07-25] MEDS: Multivitamins/Minerals TAB PO SCH (10:51)
[2021-07-25] MEDS: Morphine ORAL.SOLN 10 mg 2 mg/ml UDC 5 ml (10 mg) PO PRN (20:27)
[2021-07-25] MEDS: Enoxaparin 40 MG/0.4 ML SYR SUBCUT SCH (20:27)
[2021-07-26] MEDS: Vancomycin 1,000 MG in NS 0.9% 250 ml 250 ML IVPB SCH ×3 (01:34→17:32)
[2021-07-26] MEDS: Multivitamins/Minerals TAB PO SCH (08:26)
[2021-07-26] MEDS ORDERED: Alteplase (CATHFLO) 2 MG VIAL IV ONE (17:21)
[2021-07-26] MEDS: Enoxaparin 40 MG/0.4 ML SYR SUBCUT SCH (20:40)
[2021-07-27] MEDS: Vancomycin 1,000 MG in NS 0.9% 250 ml 250 ML IVPB SCH ×3 (00:07→16:18)
[2021-07-27] MEDS: Multivitamins/Minerals TAB PO SCH (08:41)
[2021-07-27] MEDS: Enoxaparin 40 MG/0.4 ML SYR SUBCUT SCH (21:20)
[2021-07-28] MEDS: Vancomycin 1,000 MG in NS 0.9% 250 ml 250 ML IVPB SCH ×3 (00:54→15:38)
[2021-07-28] MEDS ORDERED: Vancomycin Trough Check NOTE FOLLOW UP ONE (07:30)
[2021-07-28 08:29] LABS: ABS Basophils 0.1 10^3/ul (0-0.2); ABS Eosinophils 0.2 10^3/ul (0-0.6); ABS Lymphocytes 3.2 10^3/ul (1.0-4.8); ABS Monocytes 0.7 10^3/ul (0-0.8); ABS Neutrophils 5.5 10^3/ul (1.5-7.7); Hematocrit 37 % (42-52); Hemoglobin 12.1 g/dL (14.0-18.0); Lymphocyte % 32.8 %; Mean Corpuscular HGB Conc 33 g/dL (31-36); Mean Corpuscular Hemoglobin 26 pg (27-31); Mean Corpuscular Volume 80 fL (80-94); Mean Platelet Volume 7.9 fL (7.4-10.4); Nucleated Red Blood Cells % 0.1; Platelet Count 669 10^3/uL (150-450); Red Blood Count 4.64 10^6 /uL (4.18-5.48); Red Cell Distribution Width 15 % (10-15); White Blood Count 9.7 10^3/uL (3.5-10.8)
[2021-07-28 08:39] LABS: CRP High Sensitivity 2.89 mg/L (<2.00)
[2021-07-28] MEDS: Multivitamins/Minerals TAB PO SCH (09:22)
[2021-07-28] MEDS: Enoxaparin 40 MG/0.4 ML SYR SUBCUT SCH (21:32)
[2021-07-29] MEDS: Vancomycin 1,000 MG in NS 0.9% 250 ml 250 ML IVPB SCH ×3 (01:26→15:25)
[2021-07-29] MEDS: Multivitamins/Minerals TAB PO SCH (08:06)
[2021-07-29] MEDS: Enoxaparin 40 MG/0.4 ML SYR SUBCUT SCH (21:37)
[2021-07-30] MEDS: Vancomycin 1,000 MG in NS 0.9% 250 ml 250 ML IVPB SCH ×3 (00:58→16:57)
[2021-07-30] MEDS: Multivitamins/Minerals TAB PO SCH (08:26)
[2021-07-30] MEDS: Enoxaparin 40 MG/0.4 ML SYR SUBCUT SCH (21:36)
[2021-07-31] MEDS: Vancomycin 1,000 MG in NS 0.9% 250 ml 250 ML IVPB SCH ×4 (00:23→23:30)
[2021-07-31] MEDS: Multivitamins/Minerals TAB PO SCH (08:29)
[2021-07-31 09:19] LABS: Vancomycin Trough 16.7 mcg/mL
[2021-07-31 11:32] LABS: Calcium 9.5 mg/dL (8.6-10.3); Potassium 4.5 mmol/L (3.5-5.0)
[2021-07-31] MEDS: Enoxaparin 40 MG/0.4 ML SYR SUBCUT SCH (20:35)
[2021-08-01 06:10] LABS: ABS Basophils 0.1 10^3/ul (0-0.2); ABS Eosinophils 0.2 10^3/ul (0-0.6); ABS Lymphocytes 2.3 10^3/ul (1.0-4.8); ABS Neutrophils 3.8 10^3/ul (1.5-7.7); Eosinophil % 2.8 %; Hematocrit 37 % (42-52); Hemoglobin 12.4 g/dL (14.0-18.0); Lymphocyte % 31.3 %; Mean Corpuscular HGB Conc 34 g/dL (31-36); Mean Corpuscular Hemoglobin 27 pg (27-31); Mean Corpuscular Volume 80 fL (80-94); Mean Platelet Volume 7.5 fL (7.4-10.4); Platelet Count 516 10^3/uL (150-450); Red Blood Count 4.59 10^6 /uL (4.18-5.48); Red Cell Distribution Width 15 % (10-15); White Blood Count 7.3 10^3/uL (3.5-10.8)
[2021-08-01 06:28] LABS: C Reactive Protein 4.78 mg/L (<8.01); Calcium 9.8 mg/dL (8.6-10.3); Globulin 4.1 g/dL (2-4); Potassium 4.3 mmol/L (3.5-5.0); Total Bilirubin 0.4 mg/dL (0.2-1.0); Total Protein 8.1 g/dL (6.4-8.9)
[2021-08-01] MEDS: Multivitamins/Minerals TAB PO SCH (07:48)
[2021-08-01] MEDS: Vancomycin 1,000 MG in NS 0.9% 250 ml 250 ML IVPB SCH ×2 (07:48→16:35)
[2021-08-01] MEDS: Enoxaparin 40 MG/0.4 ML SYR SUBCUT SCH (20:51)
[2021-08-02] MEDS: Vancomycin 1,000 MG in NS 0.9% 250 ml 250 ML IVPB SCH ×3 (00:02→16:31)
[2021-08-02] MEDS: Multivitamins/Minerals TAB PO SCH (08:21)
[2021-08-02] MEDS: Enoxaparin 40 MG/0.4 ML SYR SUBCUT SCH (21:23)
[2021-08-03] MEDS: Vancomycin 1,000 MG in NS 0.9% 250 ml 250 ML IVPB SCH ×3 (00:39→15:29)
[2021-08-03] MEDS ORDERED: Vancomycin Trough Check NOTE FOLLOW UP ONE (07:30)
[2021-08-03] MEDS: Multivitamins/Minerals TAB PO SCH (08:28)
[2021-08-03 08:48] LABS: Vancomycin Trough 17.3 mcg/mL
[2021-08-03] MEDS: Enoxaparin 40 MG/0.4 ML SYR SUBCUT SCH (22:10)
[2021-08-04] MEDS: Vancomycin 1,000 MG in NS 0.9% 250 ml 250 ML IVPB SCH (01:12)
[2021-08-04 06:22] LABS: Hematocrit 36 % (42-52); Hemoglobin 11.9 g/dL (14.0-18.0); Mean Corpuscular HGB Conc 33 g/dL (31-36); Mean Corpuscular Hemoglobin 27 pg (27-31); Mean Corpuscular Volume 81 fL (80-94); Mean Platelet Volume 7.6 fL (7.4-10.4); Platelet Count 334 10^3/uL (150-450); Red Blood Count 4.42 10^6 /uL (4.18-5.48); Red Cell Distribution Width 16 % (10-15); White Blood Count 3.6 10^3/uL (3.5-10.8)
[2021-08-04 06:31] LABS: ABS Neutrophils 0.9 10^3/ul (1.5-7.7)
[2021-08-04 06:45] LABS: Calcium 9.8 mg/dL (8.6-10.3); Potassium 5.1 mmol/L (3.5-5.0)
[2021-08-04] MEDS: Multivitamins/Minerals TAB PO SCH (08:15)
[2021-08-04 08:36] LABS: ABS Eosinophils 0.2 10^3/ul (0-0.6); ABS Lymphocytes 1.7 10^3/ul (1.0-4.8); ABS Monocytes 0.7 10^3/ul (0-0.8); Eosinophil % 5.1 %; Lymphocyte % 46.6 %; Nucleated Red Blood Cells % 0.1
[2021-08-04 09:45] LABS: ABS Basophils 0.1 10^3/ul (0-0.2); ABS Eosinophils 0.2 10^3/ul (0-0.6); ABS Monocytes 1.1 10^3/ul (0-0.8); ABS Neutrophils 1.2 10^3/ul (1.5-7.7); Eosinophil % 4.6 %; Hematocrit 38 % (42-52); Hemoglobin 12.5 g/dL (14.0-18.0); Mean Corpuscular HGB Conc 33 g/dL (31-36); Mean Corpuscular Hemoglobin 27 pg (27-31); Mean Corpuscular Volume 81 fL (80-94); Platelet Count 394 10^3/uL (150-450); Red Blood Count 4.66 10^6 /uL (4.18-5.48); Red Cell Distribution Width 16 % (10-15); White Blood Count 4.5 10^3/uL (3.5-10.8)
[2021-08-04] MEDS: Enoxaparin 40 MG/0.4 ML SYR SUBCUT SCH (20:22)
[2021-08-05] MEDS: Multivitamins/Minerals TAB PO SCH (09:19)
[2021-08-05] MEDS ORDERED: Linezolid 600 MG IVPREMIX(*) 600 MG/300 ML BAG IVPB SCH (10:00)
[2021-08-05] MEDS: Enoxaparin 40 MG/0.4 ML SYR SUBCUT SCH (20:47)
[2021-08-05] MEDS: diPHENhydraMINE IV 50 MG/ML 1 ml VIAL (BENADRYL) SLOW PUSH PRN (20:48)
[2021-08-06] MEDS: Multivitamins/Minerals TAB PO SCH (08:38)
[2021-08-06 09:40] LABS: Hematocrit 36 % (42-52); Mean Corpuscular HGB Conc 33 g/dL (31-36); Mean Corpuscular Hemoglobin 27 pg (27-31); Mean Corpuscular Volume 81 fL (80-94); Mean Platelet Volume 7.9 fL (7.4-10.4); Platelet Count 297 10^3/uL (150-450); Red Blood Count 4.51 10^6 /uL (4.18-5.48); Red Cell Distribution Width 16 % (10-15); White Blood Count 3.9 10^3/uL (3.5-10.8)
[2021-08-06 09:59] LABS: Calcium 9.6 mg/dL (8.6-10.3); Potassium 4.4 mmol/L (3.5-5.0)
[2021-08-06] MEDS ORDERED: Linezolid 600 MG IVPREMIX(*) 600 MG/300 ML BAG IVPB SCH (10:00)
[2021-08-06 10:02] LABS: ABS Neutrophils 0.5 10^3/ul (1.5-7.7)
[2021-08-06 11:56] LABS: ABS Eosinophils 0.2 10^3/ul (0-0.6); ABS Lymphocytes 2.4 10^3/ul (1.0-4.8); ABS Monocytes 0.8 10^3/ul (0-0.8); Eosinophil % 5.6 %; Lymphocyte % 60.4 %; Nucleated Red Blood Cells % 0.1
[2021-08-06] MEDS: diPHENhydraMINE IV 50 MG/ML 1 ml VIAL (BENADRYL) SLOW PUSH PRN (20:15)
[2021-08-06] MEDS: Enoxaparin 40 MG/0.4 ML SYR SUBCUT SCH (20:19)
[2021-08-07 06:47] LABS: Hematocrit 35 % (42-52); Mean Corpuscular HGB Conc 34 g/dL (31-36); Mean Corpuscular Hemoglobin 28 pg (27-31); Mean Corpuscular Volume 81 fL (80-94); Mean Platelet Volume 8.4 fL (7.4-10.4); Platelet Count 295 10^3/uL (150-450); Red Blood Count 4.35 10^6 /uL (4.18-5.48); Red Cell Distribution Width 16 % (10-15); White Blood Count 4.1 10^3/uL (3.5-10.8)
[2021-08-07 07:15] LABS: ABS Basophils 0.1 10^3/ul (0-0.2); ABS Eosinophils 0.3 10^3/ul (0-0.6); ABS Lymphocytes 2.1 10^3/ul (1.0-4.8); ABS Monocytes 0.8 10^3/ul (0-0.8); ABS Neutrophils 0.9 10^3/ul (1.5-7.7); Eosinophil % 6.4 %; Lymphocyte % 50.7 %
[2021-08-07] MEDS ORDERED: Vancomycin Trough Check NOTE FOLLOW UP ONE (07:30)
[2021-08-07 08:27] VITALS: BP 141/84
[2021-08-07] MEDS: Multivitamins/Minerals TAB PO SCH (08:36)
== END 2021-08-07 12:20 | disposition home or self-care (01) | DRG 49 ==
LOC: SSU 16:45 → SUATTDRO 16:45
PROVIDERS: ADMIT Internal Medicine; ATTEND Internal Medicine

== ENCOUNTER 2023-11-12 14:19 | Inpatient (IN) ==
[2023-11-12 17:40] LABS: Activated Partial Thrombo Time 27.7 seconds (26.0-38.0); INR 0.96 (0.83-1.13)
[2023-11-12 17:49] LABS: ABS Eosinophils 0.2 10^3/uL (0.0-0.5); ABS Lymphocytes 3.2 10^3/uL (1.0-4.8); ABS Monocytes 1.1 10^3/uL (0.0-1.1); ABS Neutrophils 6.5 10^3/uL (1.5-7.6); Eosinophil % 2.1 %; Hematocrit 37.5 % (38-53); Lymphocyte % 29.1 %; Mean Corpuscular Hemoglobin 25.3 pg (27-33); Mean Corpuscular Hgb Conc 32.1 g/dL (31-36); Mean Corpuscular Volume 78.8 fL (80-97); Mean Platelet Volume 8.7 fL (7.5-11.2); Platelet Count 310 10^3/uL (150-450); Red Blood Count 4.76 10^6/uL (4.06-5.63); Red Cell Distribution Width 16.8 % (12-17)
[2023-11-12 17:54] LABS: Venous Bicarbonate HCO3 26.8 mmol/L (24-28)
[2023-11-12 17:57] LABS: High Sens Troponin Baseline 5 pg/mL (<20)
[2023-11-12 18:29] LABS: ALT 40 U/L (7-52); Albumin/Globulin Ratio 1.1 (1-3); Alkaline Phosphatase 130 U/L (35-149); Blood Urea Nitrogen 23 mg/dL (6-24); C Reactive Protein 5.91 mg/L (<8.01); CO2 Carbon Dioxide 27 mmol/L (22-32); Calcium 9.3 mg/dL (8.6-10.3); Chloride 101 mmol/L (101-111); Creatinine, Serum 0.77 mg/dL (0.67-1.17); Globulin 3.5 g/dL (2-4); Glucose 99 mg/dL (70-100); Sodium 134 mmol/L (135-145); Total Bilirubin 0.3 mg/dL (0.2-1.0); Total Protein 7.5 g/dL (6.4-8.9); eGFR CKD-EPI 105.1 (>60)
[2023-11-12 18:31] LABS: Anion Gap 6 mmol/L (2-16)
[2023-11-12 20:00] LABS: Potassium Redraw 4.3 mmol/L (3.5-5.0)
[2023-11-12 20:54] LABS: Urine Appearance Clear; Urine Bilirubin Negative (Negative); Urine Blood Negative (Negative); Urine Color Yellow; Urine Glucose Negative (Negative); Urine Ketones Negative (Negative); Urine Nitrite Negative (Negative); Urine Protein Negative (Negative); Urine Specific Gravity 1.025 (1.002-1.030); Urine Urobilinogen Negative (Negative); Urine pH 6.5 (5.0-8.0)
[2023-11-12] MEDS: Gadoteridol (CONTRAST) 279.3 MG/ML 10 ML IV ONE (22:10)
[2023-11-13] MEDS ORDERED: Albuterol HFA INHALER 8 gm MDI INH PRN (01:05)
[2023-11-13] MEDS ORDERED: Lisinopril/HCTZ 20/25 TAB (NF) PO SCH (02:00)
[2023-11-13] MEDS ORDERED: Nicotine GUM 4MG FRUIT FLAVOR PO PRN (02:24)
[2023-11-13 03:27] LABS: Ferritin 16.6 ng/mL (24-336)
[2023-11-13 05:52] LABS: ABS Eosinophils 0.3 10^3/uL (0.0-0.5); ABS Lymphocytes 2.8 10^3/uL (1.0-4.8); ABS Neutrophils 6.3 10^3/uL (1.5-7.6); ABS Nucleated RBC 0.02 10^3/ul; Hematocrit 39.9 % (38-53); Lymphocyte % 26.6 %; Mean Corpuscular Hemoglobin 25.6 pg (27-33); Mean Corpuscular Hgb Conc 32.4 g/dL (31-36); Mean Corpuscular Volume 79.1 fL (80-97); Mean Platelet Volume 8.3 fL (7.5-11.2); Nucleated Red Blood Cells % 0.2 %/100WBC (0.0-0.8); Platelet Count 261 10^3/uL (150-450); Red Blood Count 5.05 10^6/uL (4.06-5.63); White Blood Count 10.4 10^3/uL (3.6-10.2)
[2023-11-13 06:54] LABS: Anion Gap 4 mmol/L (2-16); Blood Urea Nitrogen 18 mg/dL (6-24); CO2 Carbon Dioxide 29 mmol/L (22-32); Calcium 9.3 mg/dL (8.6-10.3); Chloride 102 mmol/L (101-111); Creatinine, Serum 0.75 mg/dL (0.67-1.17); Glucose 81 mg/dL (70-100); Sodium 135 mmol/L (135-145); eGFR CKD-EPI 105.9 (>60)
[2023-11-13] MEDS: Methadone ORALSYR CONC LIQ 10 MG/ML PO SCH (09:30)
[2023-11-13] MEDS: Multivitamins/Minerals TAB PO SCH (09:30)
[2023-11-13] MEDS: Mometasone/Formoter 200/5 MDI INH SCH (09:33)
[2023-11-13] MEDS: Polyethylene Glycol 3350 17 GM PACKET PO SCH (21:04)
[2023-11-14 09:49] LABS: Calcium 9.2 mg/dL (8.6-10.3); Creatinine, Serum 0.95 mg/dL (0.67-1.17); Magnesium 1.9 mg/dL (1.9-2.7); Potassium 4.5 mmol/L (3.5-5.0); eGFR CKD-EPI 93.9 (>60)
[2023-11-14 13:49] VITALS: BP 152/94
[2023-11-14] MEDS: Polyethylene Glycol 3350 BTL 238 GM BTL PO SCH (15:22)
== END 2023-11-14 15:15 | disposition home or self-care (01) | DRG 347 ==
LOC: ED 14:19 → SUATTDRO 11-13 01:01 → EDHOLD 11-13 01:01 → MED 11-13 12:49
PROVIDERS: ADMIT Internal Medicine; ATTEND Student in an Organized Health Care Education/Training Program